=== PATIENT | male | born 1990 | race Caucasian/White ===

== ENCOUNTER 2018-06-03 17:21 | Emergency (ER) | payer OTHER ==
--- NOTE | 2018-06-03 17:58 | RAD ---
RIGHT WRIST 3 VIEWS: Date: 06/03/18 INDICATION: Right wrist pain after fall. FINDINGS: There is a nondisplaced, comminuted, mid waist scaphoid fracture. Carpal alignment appears within nor mal limits. There is soft tissue swelling surrounding the right wrist. DRUJ appears within normal ortiz its. IMPRESSION: Mid waist scaphoid fracture. POS: [facility]
== END 2018-06-03 19:10 | disposition home or self-care (01) ==
LOC: NAV ERS 17:21
DX: S62.001A Unspecified fracture of navicular [scaphoid] bone of right wrist, initial encounter for closed fracture (principal); W19.XXXA Unspecified fall, initial encounter; Y93.67 Activity, basketball; Y99.8 Other external cause status
CPT/HCPCS: 29125

== ENCOUNTER 2023-10-31 00:54 | Emergency (ER) | payer OTHER ==
[2023-10-31] MEDS ORDERED: Lidocaine 1% (PF) 30 ML VIAL ONE (03:09)
== END 2023-10-31 03:47 ==
LOC: NAV ERS 00:54
DX: S63.287A Dislocation of proximal interphalangeal joint of left little finger, initial encounter (principal); W21.05XA Struck by basketball, initial encounter; Y93.67 Activity, basketball
CPT/HCPCS: 26770; J2001